=== PATIENT | male | born 1965 | race Caucasian/White ===

== ENCOUNTER 2017-02-03 00:57 | Emergency (ER) | payer MEDICAID ==
[~2017-02-03] VITALS: Ht 182.9 cm; Wt 85.3 kg
[2017-02-03] MEDS ORDERED: DAPSONE25 MG ORAL (01:09)
[2017-02-03] MEDS ORDERED: ACYCLOVIR200 MG ORAL (01:09)
[2017-02-03] MEDS ORDERED: ABACAVIR-LAMIV1 EAC1 PO (01:09)
[2017-02-03] MEDS ORDERED: HYDROmorphone 1mg/ml Carpuject IM ONE (01:30)
[2017-02-03] MEDS ORDERED: HYDROCODON-ACE1 EA15 ORAL (02:06)
--- NOTE | 2017-02-03 02:06 | Emergency Room Report ---
History of Present Illness General Chief Complaint: Skin Rash/Abscess Source: Patient Present Illness HPI A 51-year-old male with a history HIV. He's been noncompliant with medication. She start back on the last few days. He presents with chief complaint of abscess to his right upper back. It has been there for almost a month. A small upper abscess drained initially but now clear one came on. No fever or chills but no nausea vomiting. Pain is 10 out of 10 pain. Worse with palpation. He was started on doxycycline yesterday. No other complaint. Allergies: Uncoded Allergies: PENICILLIN (Allergy, Unknown, 02/03/17) SULFA (Allergy, Unknown, 02/03/17) Patient History Past Medical History: see triage record, old chart reviewed, HIV Past Surgical History: other Pertinent Family History: none Social History: Denies: drug use Immunizations: other Reviewed Nursing Documentation: PMH: Agreed, PSxH: Agreed Nursing Documentation-PMH Hx Cardiac Problems: No - HIV + Review of Systems Eye: Denies: blurred vision, eye pain ENT: Denies: ear pain, nose congestion, throat swelling Respiratory: Denies: cough, shortness of breath Cardiovascular: Denies: chest pain, palpitations Gastrointestinal: Denies: abdominal pain, diarrhea, nausea, vomiting Musculoskeletal: Denies: back pain, joint pain Skin: Denies: rash Neurological: Denies: headache, numbness Endocrine: Denies: increased thirst, increased urine Hematologic/Lymphatic: Denies: easy bruising All Other Systems: negative except mentioned in HPI Physical Exam Vital Signs Date Time Temp Pulse Resp B/P Pulse Ox O2 Delivery O2 Flow Rate FiO2 02/03/17 01:01 98.2 89 14 135/74 99 Room Air vitals normal Sp02 EP Interpretation: reviewed, normal General Appearance: well appearing, no apparent distress, alert Head: normocephalic, atraumatic Eyes: bilateral eye EOMI, bilateral eye PERRL ENT: hearing grossly normal, normal pharynx Neck: full range of motion, supple, no meningismus Respiratory: chest non-tender, lungs clear, normal breath sounds Cardiovascular #1: regular rate, rhythm, no murmur Gastrointestinal: normal bowel sounds, non tender, no mass, no organomegaly, no bruit, non-distended Musculoskeletal: gait/station normal, normal range of motion, other - Back: Right lateral mid thoracic area as an indurated area of 5 cm. He has central necrotic tissue. Small amount of purulent discharge. Tender to palpation. Neurologic: alert, oriented x3 Psychiatric: mood/affect normal Skin: warm/dry Procedures Incision and Drainage Incision and Drainage : Consent: Verbal Site: Back Blade Size: 11 I & D Procedure: betadine prep, sterile drapes applied, sterile dressing applied, gauze wick placed Wound Location: back Anesthesia: Lidocaine w/ Epi Volume Anesthetic (ccs): 8 Patient Tolerated: Poor - Secondary to pain Complications: None Progress Area clean with Betadine. Local anesthetic 1% lidocaine with epinephrine. I made a 2 cm incision. There was moderate amount of current discharge. Popliteal area broken up with Yun. Patient did not tolerate this but very well. Even with palpation of the abscess patient was screaming in pain. Was able to irrigate and suction any purulent discharge. Packing was placed. No complication. Medical Decision Making Diagnostic Impression: Primary Impression: Abscess of back ER Course Patient with an abscess of his back. Most likely MRSA. He is already on doxycycline. We'll continue with it. No deep infection. No evidence of necrotizing fasciitis. We'll discharge home. Last Vital Signs Date Time Temp Pulse Resp B/P Pulse Ox O2 Delivery O2 Flow Rate FiO2 02/03/17 01:01 98.2 89 14 135/74 99 Room Air Status: improved Disposition: HOME, SELF-CARE Condition: Stable Scripts Hydrocodone/Acetaminophen 5-325* (HYDROCODONE/ACETAMINOPHEN 5-325*) 1 Each Tablet 1 TAB ORAL Q6H Y for For Pain, #15 TAB 0 Refills Prov: NAM TORRES M.D. 02/03/17 Referrals: NOT CHOSEN [facility]/,REFERRING (PCP) Patient Instructions: Abscess Additional Instructions: Followup in 2 days for wound check and packing removal. Return if symptom worsen. NAM TORRES M.D. Feb 03, 2017 02:06
[2017-02-03 02:20] VITALS: BP 109/69
[2017-02-03 02:25] VITALS: BP 109/69
== END 2017-02-03 02:25 | disposition home or self-care (01) ==
LOC: EMR 01:20
DX: L02.212 Cutaneous abscess of back [any part, except buttock and flank] (principal); Z88.0 Allergy status to penicillin; Z88.2 Allergy status to sulfonamides
CPT/HCPCS: 10060; 96374; 99283; J1170